=== PATIENT | female | born 1990 | race Caucasian/White ===

== ENCOUNTER → 2018-03-15 | Outpatient (CLI) | payer MEDICAID, OTHER ==
[~2018-03-15] MED LIST: AMX500CIP PO; CEPH500C PO; CODE-54 PO; PHEN200T27 PO; PREN1TAB71 PO; TRAM50TA2 PO
--- NOTE | 2018-03-15 11:08 | Diagnostic Imaging Report ---
INDICATION: Right upper quadrant pain TECHNIQUE: Multiple grayscale sonographic images were obtained of the right upper quadrant of the abdomen. CORRELATION STUDY: None FINDINGS: LIVER: There is uniform echotexture within the visualized portions of the liver. There is normal, hepatopedal direction of flow within the main portal vein. GALLBLADDER: Absent, cholecystectomy. COMMON BILE DUCT: Not visualized. PANCREAS: Largely obscured. Visualized portions are unremarkable. RIGHT KIDNEY: Measures 10.7 cm. No hydronephrosis. AORTA/IVC: Not well visualized. OTHER: None. IMPRESSION: 1. Cholecystectomy changes. Otherwise, unremarkable right upper quadrant ultrasound evaluation. Dictated by: Dictated on workstation # [id number]
== END ==
LOC: RAD 07:06
PROVIDERS: ATTEND Nurse Practitioner Family
DX: R10.11 Right upper quadrant pain (principal); Z90.49 Acquired absence of other specified parts of digestive tract
CPT/HCPCS: 76705

== ENCOUNTER 2018-10-03 21:25 | Emergency (ER) | payer BC, OTHER ==
[~2018-10-03] VITALS: Ht 160 cm; Wt 85.7 kg
--- OUTSIDE RECORDS SUMMARY | 2018-10-03 21:29 | XMS REPORT ---
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 Active 85160986 Problem History of anemia Z86.2 Active 820597883 Problem Generalized anxiety disorder F41.1 Active 54599155 Problem Moderate episode of recurrent major depressive disorder F33.1 Active 802640412 Problem Other chronic pain G89.29 Active 78934619 Problem Body mass index (BMI) of 35.0-35.9 in adult Z68.35 Active 446818332 Problem Grief F43.21 Active 391532445 Problem Dysthymia F34.1 Active 18119225 ALLERGIES No Information ENCOUNTERS Encounter Location Date Diagnosis [place] [id number] [place] [address] 38393- 7466 Oct, [facility] [address] [place] [id number] [place] [address] 77334- 4576 Sep, [facility] [id number] [place] [address] 71424- 7326 07 Sep, 2018 Moderate episode of recurrent major depressive disorder F33.1 ; Grief F43.21 and Low back pain M54.5 [facility] [address] [place] [id number] [place] [address] 46661- 3656 Aug, Generalized anxiety disorder F41.1 ; Moderate episode of recurrent major depressive disorder F33.1 and Grief F43.21 [facility] [address] [place] [address] 45592- 2299 Jul, Other obesity due to excess calories E66.09 ; Dysthymia F34.1 and Other chronic pain G89.29 [place] [address] [place] [id number] [place] [address] 86091- 6896 Jul, [place] [id number] [place] [address] 83087- 8470 Jul, Body mass index (BMI) of 35.0-35.9 in adult Z68.[address] 37404- 9860 Jun, Low back pain M54.5 ; Other chronic pain G89.29 ; Dietary counseling Z71.3 ; Other obesity due to excess calories E66.09 and Body mass index (BMI) of 35.0-35.9 in adult Z68.35 [place] [id number] [place] [address] 07136- 9491 May, [facility] [place] [id number] [place] [address] 60901 -8563 Mar, [place] [id number] [place] [address] 25489- 4422 February, Screening cholesterol level Z13.220 ; Hypercalciuria, 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 ; 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 ; Right upper quadrant pain R10.11 ; Other obesity due to excess calories E66.09 ; Body mass index (BMI) of 34.0-34.9 in adult Z68.34 and Dietary counseling Z71.3 [place] [id number] [place] [address] 84895- 8193 Jan, Well woman exam with routine gynecological exam Z01.419 ; Weight gain R63.5 ; History of anemia Z86.2 ; Acute vaginitis N76.0 and Other specified bacterial agents as the cause of diseases classified elsewhere B96.89 [facility] [place] [id number] [place] [address] 81101 -7859 Jan, Acute nasopharyngitis J00 [facility] [address] [address] 1[address] Jan, Pharyngitis, unspecified etiology J02.9 and Upper respiratory tract infection, unspecified type J06.9 [facility] [address] [place] [address] 55875 -7935 Jan, Acute thoracic back pain, unspecified back pain laterality M54.6 [facility] [address] [id number] [place] [address] 20409 -4276 Nov, Pain of sternum R07.89 [facility] [address] [place] [address] [id number] [place] [address] 99062- 7002 15 Oct, 2015 [facility] [address] [place] [address] [id number] [place] [address] 06023- 7735 14 Oct, 2015 [facility] [address] [place] [address] [id number] [place] [address] 54439- 9346 Oct, Abdominal pain R10.9 ; Hypercalciuria, 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 ; History of recurrent UTIs Z87.440 and Depression F32.9 [facility] [address] [place] [address] [id number] [place] [address] 65236- 8552 14 Jan, 2015 [facility] [address] [place] [address] 01550- 9891 Jan, [facility] [address] [place] [address] 65989- 5312 Sep, [facility] [address] [place] [address] 97083- 3539 Sep, [facility] [address] [place] [address] [id number] [place] [address] 38808- 7567 Sep, [facility] [address] [place] [address] 69399- 4205 Aug, [facility] [address] [place] [id number] [place] [address] 28686- 4867 Aug, [facility] [place] [facility] [address] [id number] [place] [address]- 7182 Jul, [facility] [place] [facility] [address] [id number] [place] [address]- 9152 Jul, [facility] [place] [facility] [address] [id number] [place] [address]- 5885 Jul, [facility] [place] [facility] [address] [id number] [place] [address]- 8464 Jul, [facility] [place] [facility] [address] [id number] [place] [address]- 3815 Jul, [facility] [place] [facility] [address] [id number] [place] [address]- 6547 Jul, [facility] [place] [facility] [address] [id number] [place] [address]- 2501 Jul, [facility] [place] [facility] [address] [id number] [place] [address]- 0445 Jul, [facility] [place] [facility] [address] [id number] [place] [address]- 3716 Jul, [facility] [place] [facility] [address] [id number] [place] [address]- 2217 28 Jun, 2013 [facility] [place] [facility] [address] [id number] [address]- 0047 27 Jun, 2013 [facility] [place] [facility] [address] [id number][place] [address]- 0230 16 Jun, 2013 [facility] [place] [facility] [address] [id number] [place] [address]- 2543 13 Jun, 2013 [facility] [place] [facility] [address] [id number] [place] [address]- 0813 12 Jun, 2013 [facility] [place] [facility] [address] [id number] [place] [address]- 7169 Mar, [facility] [place] [facility] [address] [id number] [place] [address] [address]78 Mar, [facility] [address] [facility] [id number], [place] [address]- 2270 Mar, [facility] [address] [facility] [id number], [place] [address]- 7157 Mar, [facility] [address] [facility] [id number][place] [address]- 2638 Mar, IMMUNIZATIONS No Known Immunizations SOCIAL HISTORY Never Assessed REASON FOR VISIT intake PLAN OF CARE Activity Details Follow Up 2 Weeks Reason: VITAL SIGNS MEDICATIONS Medication Instructions Dosage Frequency Start Date End Date Duration Status Ibuprofen 800 MG Orally Three times a day as needed for pain 1 tablet with food or milk as needed Jan, 30 days Active Cyclobenzaprine HCl 10 mg Orally Once a day 1 tablet as needed 24h Jun, Jun, 90 days Active RESULTS No Results PROCEDURES Procedure Date Ordered Result Body Site Psych diagnostic evaluation, established patient Sep 03, 2018 INSTRUCTIONS MEDICATIONS ADMINISTERED No Known Medications MEDICAL (GENERAL) HISTORY Type Description Date Medical History Renal stones since age of 16 Medical History History HPV 09/2008 had colp done Medical History Methamphetamine abuse in remission Medical History Lumbago Medical History Anemia Medical History Hypercalciuria Surgical History cholecystectomy 2007 Surgical History cyst removed from jaw
--- OUTSIDE RECORDS SUMMARY | 2018-10-03 21:29 | XMS REPORT ---
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 Active 17892364 Problem History of anemia Z86.2 Active 537372316 Problem Generalized anxiety disorder F41.1 Active 65215282 Problem Moderate episode of recurrent major depressive disorder F33.1 Active 910559454 Problem Other chronic pain G89.29 Active 68549780 Problem Body mass index (BMI) of 35.0-35.9 in adult Z68.35 Active 890795534 Problem Grief F43.21 Active 528624355 Problem Dysthymia F34.1 Active 80191961 ALLERGIES Substance Reaction Event Type Date Status Macrobid hives Drug Allergy Sep, Active Morphine swell Drug Allergy Sep, Active ENCOUNTERS Encounter Location Date Diagnosis [facility] [address] [place] [id number] [place] [address] 31448- 8898 Oct, [facility] [address] [address]- 1817 Sep, [facility] [address] [place] [id number] [place] [address] 69969- 1518 Sep, Moderate episode of recurrent major depressive disorder F33.1 ; Grief F43.21 and Low back pain M54.5 [facility] [address] [place] [address] [id number] [address]- 2100 Aug, Generalized anxiety disorder F41.1 ; Moderate episode of recurrent major depressive disorder F33.1 and Grief F43.21 [place] [id number] [place] [address] 49864- 1158 17 Jul, 2018 Other obesity due to excess calories E66.09 ; Dysthymia F34.1 and Other chronic pain G89.[address] 62908- 0784 Jul, [place] [address] 80708- 0600 Jul, Body mass index (BMI) of 35.0-35.9 in adult Z68.[address] 86759- 3057 06 Jun, 2018 Low back pain M54.5 ; Other chronic pain G89.29 ; Dietary counseling Z71.3 ; Other obesity due to excess calories E66.09 and Body mass index (BMI) of 35.0-35.9 in adult Z68.35 [place] [address] [place] [id number] [place] [address] 50072- 3780 May, [place] [id number] [place] [address] 73295 -2026 Mar, [place] [id number] [place] [address] 01682- 4740 February, Screening cholesterol level Z13.220 ; Hypercalciuria, 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 ; 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 ; Right upper quadrant pain R10.11 ; Other obesity due to excess calories E66.09 ; Body mass index (BMI) of 34.0-34.9 in adult Z68.34 and Dietary counseling Z71.3 [place] [id number] [place] [address] 18595- 3852 Jan, Well woman exam with routine gynecological exam Z01.419 ; Weight gain R63.5 ; History of anemia Z86.2 ; Acute vaginitis N76.0 and Other specified bacterial agents as the cause of diseases classified elsewhere B96.89 [facility] [place] [facility] [address] [address] -8692 Jan, Acute nasopharyngitis J00 [facility] [address] [place] [id number] [place] [address] 58228- 3851 Jan, Pharyngitis, unspecified etiology J02.9 and Upper respiratory tract infection, unspecified type J06.9 [facility] [address] [place] [id number] [place] [address] 11948 -8687 Jan, Acute thoracic back pain, unspecified back pain laterality M54.6 [facility] [address] [place] [id number] [place] [address] 48115 -0557 Nov, Pain of sternum R07.89 [facility] [address] [place] [id number] [place] [address] 36136- 5545 15 Oct, 2015 [place] [address] [place] [id number] [place] [address] 93939- 5558 14 Oct, 2015 [facility] [address] [place] [id number] [place] [address] 55033- 2025 13 Oct, 2015 Abdominal pain R10.9 ; Hypercalciuria, 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 ; History of recurrent UTIs Z87.440 and Depression F32.9 [place] [address] [place] [address] 45725- 5341 14 Jan, 2015 [place] [address] [place] [id number] [place] [address] 04421- 0369 Jan, [facility] [address] [place] [address] 51002- 9915 Sep, [facility] [address] [place] [id number] [place] [address] 11317- 9935 Sep, [facility] [address] [place] [id number] [place] [address] 70025- 0292 Sep, [facility] [address] [place] [id number] [place] [address] 12492- 5119 Aug, [facility] [place] [facility] [address] [id number] [place] [address]- 0004 Aug, [facility] [place] [facility] [address] [id number] [place] [address]- 2221 Jul, [facility] [place] [facility] [address] [id number] [place] [address]- 2249 Jul, [facility] [place] [facility] [address] [id number] [place] [address]- 1830 Jul, [facility] [place] [facility] [address] [id number] [place] [address]- 3595 Jul, [facility] [place] [facility] [address] [id number] [place] [address]- 2809 Jul, [facility] [place] [facility] [address] [id number] [place] [address]- 0065 Jul, [facility] [place] [facility] [address] [id number], [place] [address]- 7712 Jul, [facility] [place] [facility] [address] [id number] [place] [address]- 5497 Jul, [facility] [place] [facility] [address] [id number], [place] [address]- 7151 Jul, [facility] [place] [facility] [address] [id number], [place] [address]- 3873 28 Jun, 2013 [facility] [place] [facility] [address] [id number][place] [address]- 9009 27 Sep, 2012 [facility] [place] [facility] [address] [id number], [place] [address]- 0995 16 Sep2012 [facility] [place] [facility] [address] [id number], [place] [address]- 4867 13 Sep2012 [facility] [place] [facility] [address] [id number], [place] [address]- 0623 12 Sep, 2012 [facility] [place] [facility] [address] [id number], [place] [address]- 6139 Mar, [facility] [address] [facility] [id number] [place] [address]- 8785 Mar, [facility] [address] [facility] [id number], [place] [address]- 8891 Mar, [facility] [address] [facility] [id number] [address]- 3921 Mar, [facility] [address] [facility] [id number], [place] [address]- 0482 Mar, IMMUNIZATIONS No Known Immunizations SOCIAL HISTORY Never Assessed REASON FOR VISIT [facility] Activity Details Follow Up 4 Weeks Reason:depression VITAL SIGNS Height 61 in 2018-09-14 Weight 187.0 lbs 2018-09-14 Temperature 97.3 degrees Fahrenheit 2018-09-14 Heart Rate 76 bpm 2018-09-14 Respiratory Rate 20 2018-09-14 BMI 35.33 kg/m2 2018-09-14 Blood pressure systolic 110 mmHg 2018-09-14 Blood pressure diastolic 64 mmHg 2018-09-14 MEDICATIONS Medication Instructions Dosage Frequency Start Date End Date Duration Status Ibuprofen 800 MG Orally Three times a day as needed for pain 1 tablet with food or milk as needed Jan, 30 days Active HydrOXYzine HCl 25 MG Orally every 8 hrs 1 tablet as needed 8h Sep, 30 day(s) Active Fluoxetine HCl 20 mg Orally Once a day 1 capsule 24h Sep, 30 day(s) Active Cyclobenzaprine HCl 10 mg Orally Once a day 1 tablet as needed 24h Jun, 90 days Active RESULTS No Results PROCEDURES Procedure Date Ordered Result Body Site EKG, TRACING (IN-HOUSE) 2018-09-14 Appropriate ELECTROCARDIOGRAM, TRACING Sep 14, 2018 INSTRUCTIONS MEDICATIONS ADMINISTERED No Known Medications MEDICAL (GENERAL) HISTORY Type Description Date Medical History Renal stones since age of 16 Medical History History HPV 09/2008 had colp done Medical History Methamphetamine abuse in remission Medical History Lumbago Medical History Anemia Medical History Hypercalciuria Surgical History cholecystectomy 2007 Surgical History cyst removed from jaw
--- OUTSIDE RECORDS SUMMARY | 2018-10-03 21:30 | XMS REPORT ---
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 Active 32142418 Problem Other obesity due to excess calories E66.09 Active 781855653 Problem Other chronic pain G89.29 Active 98915633 Problem Dietary counseling Z71.3 Active 194464969 Problem History of anemia Z86.2 Active 917310040 Problem Body mass index (BMI) of 35.0-35.9 in adult Z68.35 Active 692343499 Problem 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 269397554 ALLERGIES No Information ENCOUNTERS Encounter Location Date Diagnosis [facility] [address] [address]249- 1141 Jul, [place] [address] 98747- 8550 Jul, [facility] [address] [place] [id number] [place] [address] 61907- 0722 Jul, Body mass index (BMI) of 35.0-35.9 in adult Z68.35 [facility] [address] [place] [id number] [place] [address] 21643- 6702 Jun, Low back pain M54.5 ; Other chronic pain G89.29 ; Dietary counseling Z71.3 ; Other obesity due to excess calories E66.09 and Body mass index (BMI) of 35.0-35.9 in adult Z68.35 [facility] [address] [place] [id number] [place] [address] 67668- 8783 May, [facility] [address] [place] [id number] [place] [address] 22558 -8763 Mar, [place] [address] 79461- 9343 February, Screening cholesterol level Z13.220 ; Hypercalciuria, 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 ; 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 ; Right upper quadrant pain R10.11 ; Other obesity due to excess calories E66.09 ; Body mass index (BMI) of 34.0-34.9 in adult Z68.34 and Dietary counseling Z71.3 [place] [address] 63838- 7722 27 Jan, 2018 Well woman exam with routine gynecological exam Z01.419 ; Weight gain R63.5 ; History of anemia Z86.2 ; Acute vaginitis N76.0 and Other specified bacterial agents as the cause of diseases classified elsewhere B96.89 [facility] [place] [address] [place] [id number] [place] [address] 34798 -6676 Jan, Acute nasopharyngitis J00 [place] [address] [place] [id number] [place] [address] 76151- 2292 Jan, Pharyngitis, unspecified etiology J02.9 and Upper respiratory tract infection, unspecified type J06.9 [facility] [place] [id number] [place] [address] 63376 -9188 Jan, Acute thoracic back pain, unspecified back pain laterality M54.6 [facility] [place] [address] [place] [id number] [place] [address] 56785 -8295 Nov, Pain of sternum R07.89 [place] [address] 71277- 2714 Oct, [place] [address] 63901- 9396 14 Oct, 2015 [place] [address] 60905- 3556 13 Oct, 2015 Abdominal pain R10.9 ; Hypercalciuria, 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 ; History of recurrent UTIs Z87.440 and Depression F32.9 [facility] [address] [place] [id number] [place] [address] 72268- 3380 14 Jan, 2015 [facility] [address] [place] [id number] [place] [address] 42378- 0751 Jan, [facility] [address] [place] [id number] [place] [address] 27481- 6996 Sep, [facility] [id number] [place] [address] 42260- 0199 Sep, [facility] [address] [place] [id number] [place] [address] 14442- 1159 Sep, [facility] [address] [place] [id number] [place] [address] 63360- 1497 Aug, [facility] [address] [place] [id number] [place] [address] 92455- 6478 Aug, [facility] [id number] [place] [address] 24622- 4152 Jul, [facility] [address] [place] [id number] [place] [address] 18074- 3282 Jul, [facility] [address], [place] [address]- 7093 Jul, [facility] [id number] [place] [address] 27165- 6091 Jul, [facility] [id number] [place] [address] 31218- 9033 Jul, [facility] [address] [id number] [place] [address] 90450- 0230 Jul, [facility] [address], [place] [address]- 8169 Jul, [facility] [address] [place] [id number] [place] [address] 03687- 9930 Jul, [facility] [address] [facility] [id number], [place] [address]- 6604 02 Jul, 2013 [facility] [address] [facility] [id number], [place] [address]- 1849 28 Jun, 2013 [facility] [address] [facility] [id number], [place] [address]- 7047 27 Jun, 2013 [facility] [address] [facility] [id number], [place] [address]- 4046 16 Jun, 2013 [facility] [address] [facility] [id number], [place] [address]- 9972 13 Jun, 2013 [facility] [address] [place] [id number] [address]- 9322 12 Jun, 2013 [facility] [address], [place] [address]- 9878 Mar, [facility] [address], [place] [address]- 5044 Mar, [facility] [address], [place] [address]- 2598 Mar, [facility] [id number], [place] [address] Mar, [facility] [id number], [place] [address] Mar, IMMUNIZATIONS No Known Immunizations SOCIAL HISTORY Never Assessed REASON FOR VISIT diethylpropion 07/12 PLAN OF CARE VITAL SIGNS MEDICATIONS Unknown Medications RESULTS No Results PROCEDURES No Known procedures INSTRUCTIONS MEDICATIONS ADMINISTERED No Known Medications MEDICAL (GENERAL) HISTORY Type Description Date Medical History Renal stones since age of 16 Medical History History HPV 09/2008 had colp done Medical History Methamphetamine abuse in remission Medical History Lumbago Medical History Anemia Medical History Hypercalciuria Surgical History cholecystectomy 2007 Surgical History cyst removed from jaw
--- OUTSIDE RECORDS SUMMARY | 2018-10-03 21:30 | XMS REPORT ---
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 459418807 ALLERGIES No Information ENCOUNTERS Encounter Location Date Diagnosis [facility] [id number] [place] [address] 14566- 3845 Jun, [facility] [address] [address]221- 3609 May, [facility] [address] [place] [address] 92173 -0513 Mar, [facility] [id number] [place] [address] 54534- 3677 February, Screening cholesterol level Z13.220 ; Hypercalciuria, 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 ; 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 ; Right upper quadrant pain R10.11 ; Other obesity due to excess calories E66.09 ; Body mass index (BMI) of 34.0-34.9 in adult Z68.34 and Dietary counseling Z71.3 [facility] [id number] [place] [address] 12066- 3784 27 Jan, 2018 Well woman exam with routine gynecological exam Z01.419 ; Weight gain R63.5 ; History of anemia Z86.2 ; Acute vaginitis N76.0 and Other specified bacterial agents as the cause of diseases classified elsewhere B96.89 [facility] [place] [id number] [place] [address] 61040 -7840 Jan, Acute nasopharyngitis [address] [place] [id number] [place] [address] 96653- 4626 Jan, Pharyngitis, unspecified etiology J02.9 and Upper respiratory tract infection, unspecified type J06.9 [facility] [place] [id number] [place] [address] 42552 -2958 Jan, Acute thoracic back pain, unspecified back pain laterality M54.6 [facility] [place] [id number] [place] [address] 86186 -7293 Nov, Pain of sternum R07.89 [place] [id number] [place] [address] 59021- 6079 15 Oct, 2015 [place] [id number] [place] [address] 71634- 0878 Oct, [place] [id number] [place] [address] 29705- 8408 Oct, Abdominal pain R10.9 ; Hypercalciuria, 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 ; History of recurrent UTIs Z87.440 and Depression F32.9 [place] [id number] [place] [address] 50341- 4224 14 Jan, 2015 [place] [id number] [place] [address] 86597- 6673 Jan, [place] [id number] [place] [address] 39699- 7053 Sep, [place] [id number] [place] [address] 50860- 1771 Sep, [place] [id number] [place] [address] 32565- 9662 Sep, [facility] [place] [facility] [address] [id number] [place] [address]- 5371 Aug, [facility] [place] [facility] [address] [id number] [place] [address]- 6361 Aug, [facility] [place] [facility] [address] [id number] [place] [address]- 5270 Jul, [facility] [place] [facility] [address] [id number] [place] [address]- 5665 Jul, [facility] [place] [facility] [address] [id number] [place] [address]- 3150 Jul, [facility] [place] [facility] [address] [id number] [place] [address]- 8899 Jul, [facility] [place] [facility] [address] [id number] [place] [address]- 5386 Jul, [facility] [place] [facility] [address] [id number] [place] [address]- 7866 Jul, [facility] [place] [facility] [address] [id number] [place] [address]- 8654 Jul, [facility] [place] [facility] [address] [id number], [place] [address]- 8291 Jul, [facility] [place] [facility] [address] [id number], [place] [address]- 7070 Jul, [facility] [place] [facility] [address] [id number], [place] [address]- 1367 28 Jun, 2013 [facility] [place] [facility] [address] [id number] [place] [address]- 4878 27 Sep2012 [facility] [place] [facility] [address] [id number] [place] [address]- 5549 16 Sep2012 [facility] [place] [facility] [address] [id number] [place] [address] [address] 13 Jun, 2013 [facility] [place] [facility] [address] [id number], [place] [address]- 4506 Jun, [facility] [address] [facility] [id number], [place] [address]- 8116 Mar, [facility] [address] [id number] [address] 0794 Mar, [facility] [address] [facility] [id number], [place] [address]- 5271 Mar, [facility] [address] [id number] [address] 0906 14 Mar, 2012 [facility] [address] [facility] [id number], [place] [address]- 3061 Mar, IMMUNIZATIONS No Known Immunizations SOCIAL HISTORY Never Assessed REASON FOR VISIT triage JStrasserRN PLAN OF CARE VITAL SIGNS Height 61 in 2018-03-20 Weight 184.4 lbs 2018-03-20 Temperature 98.0 degrees Fahrenheit 2018-03-20 Heart Rate 60 bpm 2018-03-20 Respiratory Rate 16 2018-03-20 BMI 34.84 kg/m2 2018-03-20 Blood pressure systolic 100 mmHg 2018-03-20 Blood pressure diastolic 60 mmHg 2018-03-20 MEDICATIONS Unknown Medications RESULTS No Results PROCEDURES No Known procedures INSTRUCTIONS MEDICATIONS ADMINISTERED No Known Medications MEDICAL (GENERAL) HISTORY Type Description Date Medical History Renal stones since age of 16 Medical History History HPV 09/2008 had colp done Surgical History cholecystectomy 2007 Surgical History cyst removed from jaw
--- OUTSIDE RECORDS SUMMARY | 2018-10-03 21:30 | XMS REPORT ---
Author Author DANAY WILHEML Organization [facility] Address [address] [place] [address] Care Team Providers Care Extruding Press Operator Name Role Phone WILHELMDANAY Shine Unavailable PROBLEMS Type Condition ICD9-CM Code SCS37-MU Code Onset Dates Condition Status SNOMED Code Problem Hypercalciuria, 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 Active 57073313 Problem Other obesity due to excess calories E66.09 Active 826857049 Problem Other chronic pain G89.29 Active 88868777 Problem Dietary counseling Z71.3 Active 235576216 Problem History of anemia Z86.2 Active 284794605 Problem Body mass index (BMI) of 35.0-35.9 in adult Z68.35 Active 725051551 Problem 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 839903962 ALLERGIES No Information ENCOUNTERS Encounter Location Date Diagnosis [facility] [address] [place] [address] 07502- 0552 06 Jun, 2018 Low back pain M54.5 ; Other chronic pain G89.29 ; Dietary counseling Z71.3 ; Other obesity due to excess calories E66.09 and Body mass index (BMI) of 35.0-35.9 in adult Z68.35 [facility] [id number] [place] [address] 48959- 1937 May, [facility] [id number] [place] [address] 50385 -7515 Mar, [facility] [address] 21638- 5882 February, Screening cholesterol level Z13.220 ; Hypercalciuria, 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 ; 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 ; Right upper quadrant pain R10.11 ; Other obesity due to excess calories E66.09 ; Body mass index (BMI) of 34.0-34.9 in adult Z68.34 and Dietary counseling Z71.3 [place] [address] [place] [address] 42841- 5685 Jan, Well woman exam with routine gynecological exam Z01.419 ; Weight gain R63.5 ; History of anemia Z86.2 ; Acute vaginitis N76.0 and Other specified bacterial agents as the cause of diseases classified elsewhere B96.89 [facility] [place] [id number] [place] [address] 29426 -7574 Jan, Acute nasopharyngitis J00 [place] [id number] [place] [address] 04022- 0134 Jan, Pharyngitis, unspecified etiology J02.9 and Upper respiratory tract infection, unspecified type J06.9 [facility] [place] [id number] [place] [address] 60924 -6025 Jan, Acute thoracic back pain, unspecified back pain laterality M54.6 [facility] [place] [id number] [place] [address] 47562 -9844 Nov, Pain of sternum R07.89 [place] [id number] [place] [address] 45519- 3611 Oct, [place] [id number] [place] [address] 49289- 9814 14 Oct, 2015 [place] [id number] [place] [address] 75629- 9492 Oct, Abdominal pain R10.9 ; Hypercalciuria, 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 ; History of recurrent UTIs Z87.440 and Depression F32.9 [place] [id number] [place] [address] 36320- 6848 Jan, [place] [id number] [place] [address] 00771- 1841 Jan, [place] [id number] [place] [address] 74600- 6904 Sep, [facility] [place] [facility] [address] [id number] [place] [address]- 3321 Sep, [facility] [place] [facility] [address] [id number] [place] [address]- 2877 Sep, [facility] [place] [facility] [address] [id number] [place] [address]- 0208 Aug, [facility] [place] [facility] [address] [id number] [place] [address]- 9698 Aug, [facility] [place] [facility] [address] [id number] [place] [address]- 1698 Jul, [facility] [place] [facility] [address] [id number] [place] [address]- 1855 Jul, [facility] [place] [facility] [address] [id number] [place] [address]- 4715 Jul, [facility] [place] [facility] [address] [id number] [place] [address]- 5865 Jul, [facility] [place] [facility] [address] [id number] [place] [address]- 3328 Jul, [facility] [place] [facility] [address] [id number] [place] [address]- 3875 Jul, [facility] [place] [facility] [address] [id number] [place] [address]- 4101 Jul, [facility] [place] [facility] [address] [id number] [place] [address]- 6083 Jul, [facility] [place] [facility] [address] [id number] [place] [address]- 6257 Jul, [facility] [place] [facility] [address] [id number] [place] [address]- 3326 28 Jun, 2013 [facility] [place] [facility] [address] [id number] [place] [address]- 1705 27 Jun, 2013 [facility] [place] [facility] [address] [id number] [address]- 2981 16 Jun, 2013 [facility] [address] [address]- 8511 13 Jun, 2013 [facility] [address] [id number] [address]- 2483 12 Jun, 2013 [facility] [address] [address]- 3180 21 Mar, 2012 [facility] [address] [address]- 4751 Mar, [facility] [address] [address]- 3299 Mar, [facility] [address] [address]- 1462 14 Mar, 2012 [facility] [address] [id number] [address]- 2474 Mar, IMMUNIZATIONS No Known Immunizations SOCIAL HISTORY Never Assessed REASON FOR VISIT Requests return call PLAN OF CARE VITAL SIGNS MEDICATIONS No Known Medications RESULTS No Results PROCEDURES No Known [...]
--- OUTSIDE RECORDS SUMMARY | 2018-10-03 21:30 | XMS REPORT ---
Author Author DANAY WILHELM Organization [facility] Address [address] [place] [address] Care Team Providers Care Executive Vice President And Chief Operating Officer Name Role Phone WILHELMDANAY Shine Unavailable PROBLEMS Type Condition ICD9-CM Code GHX87-OD Code Onset Dates Condition Status SNOMED Code Problem Other obesity due to excess calories E66.09 Active 617105401 Problem Dietary counseling Z71.3 Active 179139448 Problem History of anemia Z86.2 Active 840190415 Problem Hypercalciuria, 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 Active 61104414 Problem Body mass index (BMI) of 34.0-34.9 in adult Z68.34 Active 637605320 Problem 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ALK [facility] [id number] [place] [address] 07251 -6444 Jan, Acute nasopharyngitis [address] [place] [id number] [place] [address] 81674- 7875 Jan, Pharyngitis, unspecified etiology J02.9 and Upper respiratory tract infection, unspecified type J06.9 [facility] [place] [id number] [place] [address] 03700 -6644 Jan, Acute thoracic back pain, unspecified back pain laterality M54.6 [facility] [place] [id number] [place] [address] 00608 -5377 Nov, Pain of sternum R07.89 [place] [id number] [place] [address] 66170- 2730 Oct, [place] [id number] [place] [address] 47155- 5769 Oct, [place] [id number] [place] [address] 61628- 4879 Oct, Abdominal pain R10.9 ; Hypercalciuria, 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 ; History of recurrent UTIs Z87.440 and Depression F32.9 [place] [address] [place] [address] 15509- 7468 Jan, [place] [id number] [place] [address] 85993- 3129 Jan, [place] [id number] [place] [address] 88376- 9980 Sep, [place] [id number] [place] [address] 86774- 4075 Sep, [facility] [place] [facility] [address] [id number] [place] [address]- 4873 Sep, [facility] [place] [facility] [address] [id number] [place] [address]- 3365 Aug, [facility] [place] [facility] [address] [id number] [place] [address]- 6017 Aug, [facility] [place] [facility] [address] [id number] [place] [address]- 6286 Jul, [facility] [place] [facility] [address] [id number] [place] [address]- 9859 Jul, [facility] [place] [facility] [address] [id number] [place] [address]- 1142 Jul, [facility] [place] [facility] [address] [id number] [place] [address]- 8009 Jul, [facility] [place] [facility] [address] [id number] [place] [address]- 3492 Jul, [facility] [place] [facility] [address] [id number] [place] [address]- 2541 Jul, [facility] [place] [facility] [address] [id number] [place] [address]- 7433 Jul, [facility] [place] [facility] [address] [id number] [place] [address]- 7449 Jul, [facility] [place] [facility] [address] [id number] [place] [address]- 6849 02 Jul, 2013 [facility] [place] [facility] [address] [id number] [place] [address]- 3857 28 Jun, 2013 [facility] [place] [facility] [address] [id number] [place] [address]- 8635 27 Jun, 2013 [facility] [place] [facility] [address] [id number] [place] [address]- 5909 16 Jun, 2013 [facility] [place] [facility] [address] [id number] [address]- 2286 13 Jun, 2013 [facility] [address] [facility] [id number] [place] [address]- 7872 12 Jun, 2013 [facility] [address] [facility] [id number] [address]- 7315 Mar, [facility] [address] [facility] [id number] [place] [address]- 9833 Mar, [facility] [address] [facility] [id number] [place] [address]- 4646 Mar, [facility] [address] [facility] [id number] [address]- 2747 Mar, [facility] [address] [facility] [id number] [place] [address]- 3126 Mar, IMMUNIZATIONS No Known Immunizations SOCIAL HISTORY Never Assessed REASON FOR VISIT Establish Care-PADMAJA Garcia PLAN OF CARE Activity Details Follow Up 3 Months, prn Reason:CHM/ Future/Pending Procedure ROUTINE VENIPUNCTURE VITAL SIGNS Height 61 in 2018-03-08 Weight 182.6 lbs 2018-03-08 Temperature 98.3 degrees Fahrenheit 2018-03-08 Heart Rate 80 bpm 2018-03-08 Respiratory Rate 20 2018-03-08 BMI 34.50 kg/m2 2018-03-08 Blood pressure systolic 100 mmHg 2018-03-08 Blood pressure diastolic 64 mmHg 2018-03-08 MEDICATIONS Medication Instructions Dosage Frequency Start Date End Date Duration Status Ibuprofen 800 MG Orally Three times a day as needed for pain 1 tablet with food or milk as needed Jan, Active RESULTS No Results PROCEDURES Procedure Date Ordered Result Body Site LAB NOT BILLED BY [facility] March 08, 2018 No Charge March 08, 2018 VENIPUNCT, ROUTINE* March 08, 2018 INSTRUCTIONS MEDICATIONS ADMINISTERED No Known Medications MEDICAL (GENERAL) HISTORY Type Description Date Medical History Renal stones since age of 16 Medical History History HPV 09/2008 had colp done Surgical History cholecystectomy 2007 Surgical History cyst removed from jaw
--- OUTSIDE RECORDS SUMMARY | 2018-10-03 21:30 | XMS REPORT ---
Author Author DANAY Woody Organization [facility] Address [address] [place] [address] Care Team Providers Care Senior Boiler Operator Name Role Phone DANAY Woody Unavailable PROBLEMS Type Condition ICD9-CM Code EKK89-JG Code Onset Dates Condition Status SNOMED Code Problem Hypercalciuria, 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 Active 52498824 Problem Other obesity due to excess calories E66.09 Active 718269339 Problem Other chronic pain G89.29 Active 96203032 Problem Dietary counseling Z71.3 Active 427658522 Problem History of anemia Z86.2 Active 099060855 Problem Body mass index (BMI) of 35.0-35.9 in adult Z68.35 Active 405875964 Problem 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 944945340 ALLERGIES No Information ENCOUNTERS Encounter Location Date Diagnosis [facility] [address] [address] Jul, [facility] [address] [address]- [address] Jul, [facility] [address] [place] [id number] [place] [address] 40519- 5647 Jul, Body mass index (BMI) of 35.0-35.9 in adult Z68.35 [facility] [id number] [place] [address] 07460- 1172 Jun, Low back pain M54.5 ; Other chronic pain G89.29 ; Dietary counseling Z71.3 ; Other obesity due to excess calories E66.09 and Body mass index (BMI) of 35.0-35.9 in adult Z68.35 [facility] [id number] [place] [address] 59670- 6898 May, [facility] [id number] [place] [address] 81030 -8095 Mar, [place] [address] [address] February, Screening cholesterol level Z13.220 ; Hypercalciuria, 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 ; 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 ; Right upper quadrant pain R10.11 ; Other obesity due to excess calories E66.09 ; Body mass index (BMI) of 34.0-34.9 in adult Z68.34 and Dietary counseling Z71.3 [place] [address] [address] 27 Jan, 2018 Well woman exam with routine gynecological exam Z01.419 ; Weight gain R63.5 ; History of anemia Z86.2 ; Acute vaginitis N76.0 and Other specified bacterial agents as the cause of diseases classified elsewhere B96.89 [facility] [place] [id number] [place] [address] 97095 -2968 Jan, Acute nasopharyngitis J00 [place] [id number] [place] [address] 69801- 5555 Jan, Pharyngitis, unspecified etiology J02.9 and Upper respiratory tract infection, unspecified type J06.9 [facility] [place] [id number] [place] [address] 26193 -0482 Jan, Acute thoracic back pain, unspecified back pain laterality M54.6 [facility] [place] [id number] [place] [address] 95796 -9647 Nov, Pain of sternum R07.89 [place] [address] 36263- 9370 Oct, [place] [address] 87004- 1087 14 Oct, 2015 [place] [address] 50770- 8085 13 Oct, 2015 Abdominal pain R10.9 ; Hypercalciuria, 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 ; History of recurrent UTIs Z87.440 and Depression F32.9 [facility] [id number] [place] [address] 01643- 8413 14 Jan, 2015 [facility] [id number] [place] [address] 05041- 6001 Jan, [facility] [id number] [place] [address] 88561- 6480 Sep, [facility] [id number] [place] [address] 40462- 2509 Sep, [facility] [id number] [place] [address] 79056- 3811 Sep, [facility] [id number] [place] [address] 09096- 8135 Aug, [facility] [id number] [place] [address] 37475- 9844 Aug, [facility] [id number] [place] [address] 52330- 7049 Jul, [facility] [id number] [place] [address] 46907- 0242 Jul, [facility] [id number], [place] [address] 7646 Jul, [facility] [id number] [place] [address] 15056- 2069 Jul, [facility] [id number] [place] [address] 05322- 9798 Jul, [facility] [id number] [place] [address] 44895- 6901 Jul, [facility] [id number], [place] [address] 0465 Jul, [facility] [id number] [place] [address] 74879- 0232 Jul, [facility] [address], [place] [address]- 1485 02 Jul, 2013 [facility] [id number], [place] [address] 28 Jun, 2013 [facility] [address], [place] [address] 1407 27 Jun, 2013 [facility] [address], [place] [address]- 4999 16 Jun, 2013 [facility] [address], [place] [address]- 0448 13 Jun, 2013 [facility] [address], [place] [address]- 6060 12 Jun, 2013 [facility] [address], [place] [address]- 7834 Mar, [facility] [address], [place] [address]- 1343 Mar, [facility] [address], [place] [address] 8210 Mar, [facility] [address], [place] [address]- 0417 Mar, [facility] [address] [place] [id number] [address] 2081 Mar, IMMUNIZATIONS No Known Immunizations SOCIAL HISTORY Never Assessed REASON FOR VISIT Bp check/weight check PLAN OF CARE VITAL SIGNS Height 61 in 2018-07-09 Weight 184.6 lbs 2018-07-09 Heart Rate 74 bpm 2018-07-09 Respiratory Rate 18 2018-07-09 BMI 34.88 kg/m2 2018-07-09 Blood pressure systolic 122 mmHg 2018-07-09 Blood pressure diastolic 80 mmHg 2018-07-09 MEDICATIONS Unknown Medications RESULTS No Results PROCEDURES [...]
--- OUTSIDE RECORDS SUMMARY | 2018-10-03 21:30 | XMS REPORT ---
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 29538978 Problem Other obesity due to excess calories E66.09 Active 541833469 Problem Other chronic pain G89.29 Active 59798250 Problem Dietary counseling Z71.3 Active 392764444 Problem History of anemia Z86.2 Active 654865077 Problem Body mass index (BMI) of 35.0-35.9 in adult Z68.35 Active 415214549 Problem 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 483403555 ALLERGIES Substance Reaction Event Type Date Status Macrobid hives Drug Allergy Jun, Active Morphine swell Drug Allergy Jun, Active ENCOUNTERS Encounter Location Date Diagnosis [facility] [address] [place] [address] 29974- 2633 Jun, Low back pain M54.5 ; Other chronic pain G89.29 ; Dietary counseling Z71.3 ; Other obesity due to excess calories E66.09 and Body mass index (BMI) of 35.0-35.9 in adult Z68.35 [facility] [address] [place] [id number] [address] 79[address] May, [facility] [address] [place] [id number] [place] [address] 05135 -4598 Mar, [facility] [address] [place] [address] 59768- 6264 February, Screening cholesterol level Z13.220 ; Hypercalciuria, 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 ; 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 ; Right upper quadrant pain R10.11 ; Other obesity due to excess calories E66.09 ; Body mass index (BMI) of 34.0-34.9 in adult Z68.34 and Dietary counseling Z71.3 [place] [address] [place] [address] [id number] [place] [address] 25208- 1061 27 Jan, 2018 Well woman exam with routine gynecological exam Z01.419 ; Weight gain R63.5 ; History of anemia Z86.2 ; Acute vaginitis N76.0 and Other specified bacterial agents as the cause of diseases classified elsewhere B96.89 [facility] [place] [id number] [place] [address] 49124 -2600 Jan, Acute nasopharyngitis J00 [place] [address] [place] [id number] [place] [address] 30928- 0462 Jan, Pharyngitis, unspecified etiology J02.9 and Upper respiratory tract infection, unspecified type J06.9 [facility] [place] [address] [id number] [place] [address] 75483 -0318 Jan, Acute thoracic back pain, unspecified back pain laterality M54.6 [facility] [place] [address] [place] [address] [id number] [place] [address] 62557 -0310 Nov, Pain of sternum R07.89 [place] [address] [place] [address] [id number] [place] [address] 45835- 2709 15 Oct, 2015 [place] [address] [place] [id number] [place] [address] 10161- 2710 14 Oct, 2015 [place] [address] [place] [id number] [place] [address] 38521- 0079 13 Oct, 2015 Abdominal pain R10.9 ; Hypercalciuria, 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 ; History of recurrent UTIs Z87.440 and Depression F32.9 [place] [address] [place] [id number] [place] [address] 84611- 1431 14 Jan, 2015 [place] [address] [place] [id number] [place] [address] 92825- 2760 13 Jan, 2015 [facility] [address] [id number] [place] [address]- 2308 Sep, [facility] [place] [facility] [address] [id number] [place] [address]- 4845 Sep, [facility] [place] [facility] [address] [id number] [place] [address] Sep, [facility] [place] [facility] [address] [id number] [place] [address]- 7286 Aug, [facility] [place] [facility] [address] [id number] [place] [address]- 5638 Aug, [facility] [place] [facility] [address] [id number] [place] [address]- 2123 Jul, [facility] [place] [facility] [address] [id number] [place] [address]- 4922 Jul, [facility] [place] [facility] [address] [id number] [place] [address]- 1151 Jul, [facility] [place] [facility] [address] [id number] [place] [address]- 9799 Jul, [facility] [place] [facility] [address] [id number] [address]- 4996 Jul, [facility] [place] [facility] [address] [id number][place] [address]- 5881 Jul, [facility] [place] [facility] [address] [id number][place] [address]- 8432 Jul, [facility] [place] [facility] [address] [id number][place] [address]- 7308 Jul, [facility] [place] [facility] [address] [id number] 6784 Jul, [facility] [place] [facility] [address] [id number] 7193 Jun, [facility] [place] [facility] [address] [id number] [address]- 0602 27 Jun, 2013 [facility] [id number] 9666 16 Jun, 2013 [facility] [id number] 3287 13 Jun, 2013 [facility] [id number] [address]- 7297 12 Jun, 2013 [facility] [address] [address]- 8423 Mar, [facility] [address]- 0[address] Mar, [facility] [address] 3866 Mar, [facility] [address], [place] [address]- 6725 Mar, [facility] [id number] [address]- 6082 Mar, IMMUNIZATIONS No Known Immunizations SOCIAL HISTORY Never Assessed REASON FOR VISIT Pain management (chronic). PADMAJA Medina, Would like Ibuprofen refilled. PADMAJA Medina PLAN OF CARE Activity Details Follow Up 4 Weeks, 3 Months, prn Reason:Wt/BP check, Chm VITAL SIGNS Height 61 in 2018-06-14 Weight 187.4 lbs 2018-06-14 Temperature 97.9 degrees Fahrenheit 2018-06-14 Heart Rate 69 bpm 2018-06-14 Respiratory Rate 18 2018-06-14 BMI 35.41 kg/m2 2018-06-14 Blood pressure systolic 108 mmHg 2018-06-14 Blood pressure diastolic 74 mmHg 2018-06-14 MEDICATIONS Medication Instructions Dosage Frequency Start Date End Date Duration Status Diethylpropion HCl ER 75 MG Orally Once a day 1 tablet 24h Jun, Jul, 28 days Active Ibuprofen 800 MG Orally Three times a day as needed for pain 1 tablet with food or milk as needed Jan, 30 days Active Cyclobenzaprine HCl 10 mg Orally Once a day 1 tablet as needed 24h Jun, Jun, 90 days Active RESULTS No Results PROCEDURES No Known procedures [...]
--- OUTSIDE RECORDS SUMMARY | 2018-10-03 21:30 | XMS REPORT ---
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 005246467 ALLERGIES Substance Reaction Event Type Date Status Macrobid Unknown Drug Allergy Jan, Active Morphine Unknown Drug Allergy Jan, Active ENCOUNTERS Encounter Location Date Diagnosis [facility] [address] [place] [address] 92357 -8349 Mar, [facility] [address] [place] [id number] [place] [address] 69136- 4364 February, Screening cholesterol level Z13.220 ; Hypercalciuria, 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 ; 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 ; Right upper quadrant pain R10.11 ; Other obesity due to excess calories E66.09 ; Body mass index (BMI) of 34.0-34.9 in adult Z68.34 and Dietary counseling Z71.3 [facility] [address] [place] [id number] [place] [address] 85573- 1040 Jan, Well woman exam with routine gynecological exam Z01.419 ; Weight gain R63.5 ; History of anemia Z86.2 ; Acute vaginitis N76.0 and Other specified bacterial agents as the cause of diseases classified elsewhere B96.89 [facility] [address], [place] [address] Jan, Acute nasopharyngitis J00 [facility] [id number] [place] [address] 01783- 5507 Jan, Pharyngitis, unspecified etiology J02.9 and Upper respiratory tract infection, unspecified type J06.9 [facility] [id number] [place] [address] 42771 -6743 Jan, Acute thoracic back pain, unspecified back pain laterality M54.6 [facility] [id number] [place] [address] 34670 -2194 Nov, Pain of sternum R07.89 [facility] [id number] [place] [address] 24721- 2592 15 Oct, 2015 [facility] [id number] [place] [address] 59348- 7717 14 Oct, 2015 [facility] [id number] [place] [address] 65664- 8206 Oct, Abdominal pain R10.9 ; Hypercalciuria, 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 ; History of recurrent UTIs Z87.440 and Depression F32.9 [facility] [address], [place] [address]- 4465 14 Jan, 2015 [facility] [address] [place] [address] 86711- 3678 Jan, [facility] [address] [place] [address] 49155- 9175 Sep, [facility] [address] [place] [id number] [place] [address] 87026- 3268 Sep, [facility] [address] 7486 Sep, [facility] [address] [place] [address] 47604- 8601 Aug, [facility] [place] [facility] [address] [id number] [place] [address]- 5184 Aug, [facility] [place] [facility] [address] [id number] [place] [address]- 1849 Jul, [facility] [place] [facility] [address] [id number] [place] [address]- 1864 Jul, [facility] [place] [facility] [address] [id number] [place] [address]- 8883 Jul, [facility] [place] [facility] [address] [id number] [place] [address]- 6372 Jul, [facility] [place] [facility] [address] [id number] [place] [address]- 6352 Jul, [facility] [place] [facility] [address] [id number] [place] [address]- 5934 Jul, [facility] [place] [facility] [address] [id number], [place] [address]- 7607 Jul, [facility] [place] [facility] [address] [id number] [place] [address]- 8204 Jul, [facility] [place] [facility] [address] [id number], [place] [address]- 2680 Jul, [facility] [place] [facility] [address] [id number], [place] [address]- 4095 28 Jun, 2013 [facility] [place] [facility] [address] [id number], [place] [address]- 6438 27 Sep, 2012 [facility] [place] [facility] [address] [id number] [place] [address]- 0125 16 Sep2012 [facility] [place] [facility] [address] [id number], [place] [address]- 0147 13 Sep2012 [facility] [place] [facility] [address] [id number] [place] [address]- 9505 12 Sep2012 [facility] [place] [facility] [address] [facility] [id number], [place] [address]- 7917 21 Mar, 2012 [facility] [address] [facility] [address] [facility] [id number], [place] [address]- 8909 Mar, [facility] [address] [facility] [address] [facility] [id number], [place] [address]- 0164 20 Mar, 2012 [facility] [address] [facility] [address] [facility] [id number], [place] [address]- 9825 14 Mar, 2012 [facility] [address] [facility] [address] [facility] [id number], [place] [address]- 0508 12 Mar, 2012 IMMUNIZATIONS No Known Immunizations SOCIAL HISTORY Never Assessed REASON FOR VISIT Well Woman Exam----HUennettRWilla PLAN OF CARE Activity Details Follow Up 1 year Reason:well woman Pending Test PAP REFLEX TO HPV IF ASCUS VITAL SIGNS Height 61 in 2018-02-02 Weight 180 lbs 2018-02-02 Temperature 98.4 degrees Fahrenheit 2018-02-02 Heart Rate 70 bpm 2018-02-02 Respiratory Rate 20 2018-02-02 BMI 34.01 kg/m2 2018-02-02 Blood pressure systolic 124 mmHg 2018-02-02 Blood pressure diastolic 80 mmHg 2018-02-02 MEDICATIONS Medication Instructions Dosage Frequency Start Date End Date Duration Status Prozac 20 MG Orally Once a day 1 capsule in the morning 24h Oct, 30 day(s) Not-Taking Tessalon Perles 100 MG Orally Three times a day 1 capsule as needed 8h Jan, Jan, 5 days Active Loratadine 10 MG Orally Once a day 1 tablet 24h Jan, February, 30 day(s) Active Metronidazole 500 mg Orally every 12 hrs 1 tablet 12h Jan, February, 07 days Active Ibuprofen 800 MG Orally Three times a day as needed for pain 1 tablet with food or milk as needed Jan, Active RESULTS No Results PROCEDURES Procedure Date Ordered Result Body Site LAB NOT BILLED BY [facility] February 02, 2018 SPECIMEN HANDLING February 02, 2018 No Charge February 02, 2018 Bacterial Vaginosis In House February 02, 2018 VENIPUNCT, ROUTINE* February 02, 2018 INSTRUCTIONS MEDICATIONS ADMINISTERED No Known Medications MEDICAL (GENERAL) HISTORY Type Description Date Medical History Renal stones since age of 16 Medical History History HPV 09/2008 had colp done Surgical History cholecystectomy 2008 Surgical History cyst removed from jaw
--- OUTSIDE RECORDS SUMMARY | 2018-10-03 21:31 | XMS REPORT ---
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 94802336 Problem Body mass index (BMI) of 34.0-34.9 in adult Z68.34 Active 397519603 Problem 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 230751224 ALLERGIES Substance Reaction Event Type Date Status Macrobid Unknown Drug Allergy Jan, Active Morphine Unknown Drug Allergy Jan, Active ENCOUNTERS Encounter Location Date Diagnosis [facility] [id number] [place] [address] Mar, [facility] [id number] [place] [address] February, Screening cholesterol level Z13.220 ; Hypercalciuria, 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 ; 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 ; Right upper quadrant pain R10.11 ; Other obesity due to excess calories E66.09 ; Body mass index (BMI) of 34.0-34.9 in adult Z68.34 and Dietary counseling Z71.3 [facility] [id number] [place] [address]68- [address]20 Jan, 2018 Well woman exam with routine gynecological exam Z01.419 ; Weight gain R63.5 ; History of anemia Z86.2 ; Acute vaginitis N76.0 and Other specified bacterial agents as the cause of diseases classified elsewhere B96.89 [facility] [address], [place] [address] Jan, Acute nasopharyngitis J00 [facility] [id number] [place] [address]10[address]386 Jan, Pharyngitis, unspecified etiology J02.9 and Upper respiratory tract infection, unspecified type J06.9 [facility] [id number] [place] [address] Jan, Acute thoracic back pain, unspecified back pain laterality M54.6 [facility] [id number] [place] [address] Nov, Pain of sternum R07.89 [facility] [id number] [place] [address]36- 1395 15 Oct, 2015 [place] [id number] [place] [address] 23521- 9810 14 Oct, 2015 [facility] [address] [place] [address]01- 1188 Oct, Abdominal pain R10.9 ; Hypercalciuria, 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 ; History of recurrent UTIs Z87.440 and Depression F32.9 [facility] [address], [place] [address] 14 Jan, 2015 [facility] [address] [place] [address] 65198- 4624 Jan, [facility] [address] [place] [address] 67368- 1700 Sep, [facility] [id number] [place] [address] 43351- 5693 Sep, [facility] [address] [place] [address] 72710- 7506 Sep, [facility] [address] [place] [address] 13859- 0342 Aug, [facility] [place] [facility] [address] [id number] [place] [address] Aug, [facility] [place] [facility] [address] [id number] [place] [address] Jul, [facility] [place] [facility] [address] [id number] [place] [address] Jul, [facility] [place] [facility] [address] [id number] [place] [address] 269[address] Jul, [facility] [place] [facility] [address] [id number] [place] [address] 9[address] Jul, [facility] [place] [facility] [address] [id number] [place] [address] 27[address] Jul, [facility] [place] [facility] [address] [id number] [place] [address] 57[address] Jul, [facility] [place] [facility] [address] [id number] [place] [address] 240[address] Jul, [facility] [place] [facility] [address] [id number] [place] [address] Jul, [facility] [place] [facility] [address] [id number] [address] Jul, [facility] [place] [facility] [address] [id number], [place] [address] 28 Jun, 2013 [facility] [place] [facility] [address] [id number], [place] [address] 27 Sep, 2012 [facility] [place] [facility] [address] [id number] [place] [address] 16 Sep2012 [facility] [place] [facility] [address] [id number] [place] [address]- 2377 13 Sep2012 [facility] [place] [facility] [address] [id number] [place] [address] 47[address] 12 Sep2012 [facility] [place] [facility] [address] [id number], [place] [address] 21 Mar, 2012 [facility] [address] [facility] [id number], [place] [address] Mar, [facility] [address] [facility] [id number], [place] [address] 20 Mar, 2012 [facility] [address] [facility] [id number], [place] [address] 14 Mar, 2012 [facility] [address] [facility] [id number], [place] [address] 12 Mar, 2012 IMMUNIZATIONS No Known Immunizations SOCIAL HISTORY Never Assessed REASON FOR VISIT cough/fever Pt c/o cough and fever for 3 days PADMAJA Juarez PLAN OF CARE Activity Details Follow Up prn Reason: VITAL SIGNS Height 61 in 2018-01-31 Weight 181.2 lbs 2018-01-31 Temperature 97.7 degrees Fahrenheit 2018-01-31 Heart Rate 88 bpm 2018-01-31 Respiratory Rate 18 2018-01-31 BMI 34.23 kg/m2 2018-01-31 Blood pressure systolic 102 mmHg 2018-01-31 Blood pressure diastolic 60 mmHg 2018-01-31 MEDICATIONS Medication Instructions Dosage Frequency Start Date End Date Duration Status Loratadine 10 MG Orally Once a day 1 tablet 24h Jan, February, 30 day(s) Active Tessalon Perles 100 MG Orally Three times a day 1 capsule as needed 8h Jan, Jan, 5 days Active Ibuprofen 800 MG Orally Three times a day as needed for pain 1 tablet with food or milk as needed Jan, Active Prozac 20 MG Orally Once a day 1 capsule in the morning 24h Oct, 30 day(s) Not-Taking RESULTS No Results PROCEDURES No Known procedures INSTRUCTIONS MEDICATIONS ADMINISTERED No Known Medications MEDICAL (GENERAL) HISTORY Type Description Date Medical History Renal stones since age of 16 Medical History History HPV 09/2008 had colp done Surgical History cholecystectomy 2007 Surgical History cyst removed from jaw
--- OUTSIDE RECORDS SUMMARY | 2018-10-03 21:31 | XMS REPORT ---
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
--- OUTSIDE RECORDS SUMMARY | 2018-10-03 21:31 | XMS REPORT ---
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 74644195 Problem Body mass index (BMI) of 34.0-34.9 in adult Z68.34 Active 617384653 Problem 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 571672585 ALLERGIES Substance Reaction Event Type Date Status Macrobid Unknown Drug Allergy Jan, Active Morphine Unknown Drug Allergy Jan, Active ENCOUNTERS Encounter Location Date Diagnosis [facility] [address] [address] Mar, [facility] [address] [place] [address] February, Screening cholesterol level Z13.220 ; Hypercalciuria, 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 ; 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 ; Right upper quadrant pain R10.11 ; Other obesity due to excess calories E66.09 ; Body mass index (BMI) of 34.0-34.9 in adult Z68.34 and Dietary counseling Z71.3 [facility] [address] [place] [address] [place] [address] Jan, Well woman exam with routine gynecological exam Z01.419 ; Weight gain R63.5 ; History of anemia Z86.2 ; Acute vaginitis N76.0 and Other specified bacterial agents as the cause of diseases classified elsewhere B96.89 [facility] [address], [place] [address] Jan, Acute nasopharyngitis J00 [facility] [id number] [place] [address] 65558- 0162 Jan, Pharyngitis, unspecified etiology J02.9 and Upper respiratory tract infection, unspecified type J06.9 [facility] [id number] [place] [address] Jan, Acute thoracic back pain, unspecified back pain laterality M54.6 [facility] [id number] [place] [address] Nov, Pain of sternum R07.89 [facility] [id number] [place] [address] 27721- 6635 15 Oct, 2015 [place] [id number] [place] [address] 44633- 5311 14 Oct, 2015 [facility] [id number] [place] [address] 24708- 5944 Oct, Abdominal pain R10.9 ; Hypercalciuria, 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 ; History of recurrent UTIs Z87.440 and Depression F32.9 [facility] [address], [place] [address] 14 Jan, 2015 [place] [id number] [place] [address] 80044- 7937 Jan, [facility] [address], [place] [address] Sep, [facility] [id number] [place] [address] 88400- 4441 Sep, [facility] [address], [place] [address] Sep, [facility] [address] [place] [address] 07755- 8775 Aug, [facility] [place] [facility] [address] [id number] [place] [address]- [address] Aug, [facility] [place] [facility] [address] [id number] [place] [address]- 8461 Jul, [facility] [place] [facility] [address] [id number] [place] [address]- 2012 Jul, [facility] [place] [facility] [address] [id number] [place] [address]- 3[address] Jul, [facility] [place] [facility] [address] [id number] [place] [address]- 2576 Jul, [facility] [place] [facility] [address] [id number] [place] [address]- 86[address] Jul, [facility] [place] [facility] [address] [id number] [place] [address]- 8134 Jul, [facility] [place] [facility] [address] [id number] [place] [address]- 74[address] Jul, [facility] [place] [facility] [address] [id number] [place] [address]- 4[address] Jul, [facility] [place] [facility] [address] [id number] [place] [address]- 2985 Jul, [facility] [place] [facility] [address] [id number] [place] [address]- 5394 28 Jun, 2013 [facility] [place] [facility] [address] [id number], [place] [address] 27 Sep, 2012 [facility] [place] [facility] [address] [id number] [place] [address]- 7494 16 Sep, 2012 [facility] [place] [facility] [address] [id number] [place] [address]- 8887 13 Sep2012 [facility] [place] [facility] [address] [id number] [place] [address]- 8407 12 Sep, 2012 [facility] [place] [facility] [address] [id number] [place] [address] 3[address] Mar, [facility] [address] [facility] [id number], [place] [address] Mar, [facility] [address] [facility] [id number], [place] [address] Mar, [facility] [address] [facility] [id number], [place] [address] Mar, [facility] [address] [facility] [id number], [place] [address] Mar, IMMUNIZATIONS No Known Immunizations SOCIAL HISTORY Never Assessed REASON FOR VISIT back pain Pt c/o mid back pain, which is worse with movement, has had for about 2 weeks, not better with ibuprofen PADMAJA Juarez PLAN OF CARE Activity Details Follow Up prn Reason: VITAL SIGNS Height 61 in 2018-01-12 Weight 182.4 lbs 2018-01-12 Temperature 97.9 degrees Fahrenheit 2018-01-12 Heart Rate 84 bpm 2018-01-12 Respiratory Rate 18 2018-01-12 BMI 34.46 kg/m2 2018-01-12 Blood pressure systolic 102 mmHg 2018-01-12 Blood pressure diastolic 64 mmHg 2018-01-12 MEDICATIONS Medication Instructions Dosage Frequency Start Date End Date Duration Status Prozac 20 MG Orally Once a day 1 capsule in the morning 24h Oct, 30 day(s) Not-Taking Cyclobenzaprine HCl 5 mg Orally 2 times a day 1 tablet as needed 12h JanJan, 10 days Active Ibuprofen 800 MG Orally Three times a day 1 tablet with food or milk as needed 8h Jan, Active RESULTS No Results PROCEDURES No Known procedures INSTRUCTIONS MEDICATIONS ADMINISTERED No Known Medications MEDICAL (GENERAL) HISTORY Type Description Date Medical History Renal stones since age of 16 Medical History History HPV 09/2008 had colp done Surgical History cholecystectomy 2007 Surgical History cyst removed from jaw
--- OUTSIDE RECORDS SUMMARY | 2018-10-03 21:31 | XMS REPORT ---
Author WILLA Jackson [facility] eClinicalWorks Address Unknown Phone Unavailable Care Team Providers Care Director Of Solutions Architecture Name Role Phone WILLA BRUNER Unavailable Allergies No Known Allergies Problems Problem Type Condition Code Onset Dates Condition Status Problem History of recurrent UTIs Z87.440 Active Problem Depression F32.9 Active Problem Abdominal pain R10.9 Active Problem Hypercalciuria, 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 Active Medications Medication Code System Code Instructions Start Date End Date Status Dosage Prozac [facility] [address]-94 20 MG Orally Once a day Oct 21, 2015 1 capsule in the morning Results No Known Results Summary Purpose eClinicalWorks Submission
--- OUTSIDE RECORDS SUMMARY | 2018-10-03 21:31 | XMS REPORT | Continuity of Care Document ---
Author Author [facility] Organization [facility] Address Unknown Phone Unavailable Care Team Providers Care Counter Pocket Sewer Name Role Phone KALA ESPINOZA MD PP Insurance Providers Payer Name Policy Number Subscriber Name [id number] Jodi Suárez 01 Self / Same As Patient Advance Directives Directive Response Recorded Date Advance Directives N 07/19/13 12:08am Organ Donor N 07/19/13 12:08am Problems No Known Problems or Medical conditions. Allergies, Adverse Reactions, Alerts No known allergies Medications Medication Dose Units Route Sig Qty Days Amoxicillin (Polymox Capsule) 500 Mg PO BID 7 Acetaminophen/Codeine (Tylenol W/Codeine #3 Tablet) 1 Tab PO Q4H PRN Vit/Fe Fumarate/Fa ( Vitamin Tablet) 1 Each PO DAILY Immunizations Name Given Type Date of Influenza Vaccine 07/01/13 H Response Recorded Date/Time Status not known Unknown Results No Known Relevant Diagnostic Tests, Laboratory Data and/or Discharge Summary.
--- OUTSIDE RECORDS SUMMARY | 2018-10-03 21:31 | XMS REPORT ---
Author Author WILLA BRUNER [facility] eClinicalWorks Address Unknown Phone Unavailable Care Team Providers Care Small Kick Press Operator Name Role Phone WILLA BRUNER CP Unavailable Allergies, Adverse Reactions, Alerts Substance Reaction Event Type Macrobid Info Not Available Drug Allergy Morphine Info Not Available Drug Allergy Problems Problem Type Condition Code Onset Dates Condition Status Assessment Depression F32.9 Active Problem History of recurrent UTIs Z87.440 Active Problem Depression F32.9 Active Problem Abdominal pain R10.9 Active Assessment Hypercalciuria, 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 Active Assessment History of recurrent UTIs Z87.440 Active Problem Hypercalciuria, 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 Active Assessment Abdominal pain R10.9 Active Medications Medication Code System Code Instructions Start Date End Date Status Dosage Prozac [facility] [address]-14 20 MG Orally Once a day Oct 21, 2015 1 capsule in the morning Procedures Procedure Coding System Code Date DRUG SCREEN NON TLC DEVICES CPT-4 56323 Oct 21, 2015 COMPLETE CBC W/AUTO DIFF WBC CPT-4 64149 Oct 21, 2015 URINALYSIS, AUTO, W/O SCOPE CPT-4 15386 Oct 21, 2015 VENIPUNCT, ROUTINE* CPT-4 00108 Oct 21, 2015 ASSAY OF AMYLASE CPT-4 63920 Oct 21, 2015 COMPREHEN METABOLIC PANEL CPT-4 90455 Oct 21, 2015 Office Visit, Est Pt., Level 4 CPT-4 04044 Oct 21, 2015 ASSAY OF LIPASE CPT-4 33027 Oct 21, 2015 Vital Signs Date/Time: Oct 21, 2015 Temperature 96.8 F Weight 165.3 lbs Height 61 in BMI 31.23 Index Blood Pressure Diastolic 60 mmHg Blood Pressure Systolic 120 mmHg Cardiac Monitoring Heart Rate 84 bpm Results Name Result Date Reference Range Unit Abnormality Flag ROUTINE VENIPUNCTURE URINE DRUG SCREEN (IN HOUSE) ----MDMA negative 20151021 ----TCA negative 20151021 ----BENZO negative 20151021 ----OPIATE negative 20151021 ----THC negative 20151021 ----MTD negative 20151021 ----AMPH negative 20151021 ----BAR negative 20151021 ----PCP negative 20151021 ----MAMP negative 20151021 ----OXY negative 20151021 ----Lot # [id number] 20151021 ----Exp date 20151021 ----Control + 20151021 ----COCAINE negative 20151021 UA LONG DIP (IN HOUSE) ----OMAYRA negative 20151021 ----GLU negative 20151021 ----SG 1.025 20151021 ----KET negative 20151021 ----pH 6.5 20151021 ----Protein negative 20151021 ----BLO negative 20151021 ----EDIS negative 20151021 ----Color yellow 20151021 ----Odor no 20151021 ----Exp date 20151021 ----URO 0.2 20151021 ----NIT negative 20151021 ----Clarity clear 20151021 ----Lot # [id number] 20151021 Summary Purpose eClinicalWorks Submission
--- OUTSIDE RECORDS SUMMARY | 2018-10-03 21:31 | XMS REPORT ---
Author Author JORDAN Brady Organization [facility] Address [address] [place] [address] Care Team Providers Care Occupational Therapist Name Role Phone JORDAN Brady Unavailable PROBLEMS Type Condition ICD9-CM Code LIR50-QP Code Onset Dates Condition Status SNOMED Code Problem Other obesity due to excess calories E66.09 Active 411287507 Problem Dietary counseling Z71.3 Active 453123171 Problem History of anemia Z86.2 Active 421959699 Problem Hypercalciuria, 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 Active 90068930 Problem Body mass index (BMI) of 34.0-34.9 in adult Z68.34 Active 065928508 Problem 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 024998384 ALLERGIES Substance Reaction Event Type Date Status Macrobid Unknown Drug Allergy Jan, Active Morphine Unknown Drug Allergy Jan, Active ENCOUNTERS Encounter Location Date Diagnosis [facility] IN [facility] [id number] [place] [address] Mar, [facility] [id number] [place] [address] February, Screening cholesterol level Z13.220 ; Hypercalciuria, 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 ; 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 ; Right upper quadrant pain R10.11 ; Other obesity due to excess calories E66.09 ; Body mass index (BMI) of 34.0-34.9 in adult Z68.34 and Dietary counseling Z71.3 [facility] [id number] [place] [address] Jan, Well woman exam with routine gynecological exam Z01.419 ; Weight gain R63.5 ; History of anemia Z86.2 ; Acute vaginitis N76.0 and Other specified bacterial agents as the cause of diseases classified elsewhere B96.89 [facility] [address], [place] [address] Jan, Acute nasopharyngitis J00 [facility] [id number] [place] [address] Jan, Pharyngitis, unspecified etiology J02.9 and Upper respiratory tract infection, unspecified type J06.9 [facility] [id number] [place] [address] Jan, Acute thoracic back pain, unspecified back pain laterality M54.6 [facility] [id number] [place] [address] Nov, Pain of sternum R07.89 [facility] [id number] [place] [address] 555[address] 15 Oct, 2015 [facility] [id number] [place] [address] 14 Oct, 2015 [facility] [id number] [place] [address] Oct, Abdominal pain R10.9 ; Hypercalciuria, 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 ; History of recurrent UTIs Z87.440 and Depression F32.9 [facility] [address] [address] 14 Jan, 2015 [facility] [id number] [place] [address] Jan, [facility] [id number] [place] [address] Sep, [facility] [id number] [place] [address] Sep, [facility] [address] [address] Sep, [facility] [id number] [place] [address] Aug, [facility] [place] [facility] [address] [id number] [place] [address] Aug, [facility] [place] [facility] [address] [id number] [place] [address] Jul, [facility] [place] [facility] [address] [id number] [place] [address] Jul, [facility] [place] [facility] [address] [id number] [place] [address] Jul, [facility] [place] [facility] [address] [id number] [place] [address] Jul, [facility] [place] [facility] [address] [id number] [place] [address] Jul, [facility] [place] [facility] [address] [id number] [place] [address] Jul, [facility] [place] [facility] [address] [id number], [place] [address] Jul, [facility] [place] [facility] [address] [id number] [place] [address] Jul, [facility] [place] [facility] [address] [id number], [place] [address] Jul, [facility] [place] [facility] [address] [id number], [place] [address] 28 Jun, 2013 [facility] [place] [facility] [address] [id number], [place] [address] 27 Sep, 2012 [facility] [place] [facility] [address] [id number] [place] [address] 16 Sep2012 [facility] [place] [facility] [address] [id number], [place] [address] 13 Sep2012 [facility] [place] [facility] [address] [id number] [place] [address] 12 Sep2012 [facility] [place] [facility] [address] [facility] [id number], [place] [address] 21 Mar, 2012 [facility] [address] [facility] [id number], [place] [address] Mar, [facility] [address] [facility] [id number], [place] [address] 20 Mar, 2012 [facility] [address] [facility] [id number], [place] [address] 14 Mar, 2012 [facility] [address] [facility] [id number], [place] [address] 12 Mar, 2012 IMMUNIZATIONS No Known Immunizations SOCIAL HISTORY Never Assessed REASON FOR VISIT Sore throat, cough, congestion, nausea x2 days----DBennettRN PLAN OF CARE Activity Details Follow Up prn Reason: VITAL SIGNS Height 61 in 2018-01-29 Weight 181 lbs 2018-01-29 Temperature 98.6 degrees Fahrenheit 2018-01-29 Heart Rate 90 bpm 2018-01-29 Respiratory Rate 20 2018-01-29 BMI 34.20 kg/m2 2018-01-29 Blood pressure systolic 90 mmHg 2018-01-29 Blood pressure diastolic 62 mmHg 2018-01-29 MEDICATIONS Medication Instructions Dosage Frequency Start Date End Date Duration Status Prozac 20 MG Orally Once a day 1 capsule in the morning 24h Oct, 30 day(s) Not-Taking Ibuprofen 800 MG Orally Three times a day as needed for pain 1 tablet with food or milk as needed Jan, Active RESULTS No Results PROCEDURES Procedure Date Ordered Result Body Site STREP A ASSAY W/OPTIC January 29, 2018 LAB NOT BILLED BY [facility] January 29, 2018 INSTRUCTIONS MEDICATIONS ADMINISTERED No Known Medications MEDICAL (GENERAL) HISTORY Type Description Date Medical History Renal stones since age of 16 Medical History History HPV 09/2008 had colp done Surgical History cholecystectomy 2007 Surgical History cyst removed from jaw
--- OUTSIDE RECORDS SUMMARY | 2018-10-03 21:32 | XMS REPORT | Continuity of Care Document ---
Author Author [facility] Address Unknown Phone Unavailable Allergies Active Description Code Type Severity Reaction Onset Reported/Identified Relationship to Patient Clinical Status Yes MACROBID SEVERE OTHER Yes MORPHINE SEVERE OTHER Yes Macrobid Drug Allergy N/A N/A 06/20/2013 Yes morphine Drug Allergy N/A N/A 06/20/2013 Yes morphine [id number] Drug Allergy Mild N/A 11/08/2013 Yes nitrofurantoin [id number] Drug Allergy Mild N/A 11/08/2013 Medications There is no data. Problems Date Dx Coded Attending Type Code Diagnosis Diagnosed By 03/20/2012 V22.1 , NORMAL OTHER 03/20/2012 KALA ESPINOZA MD V22.1 , NORMAL OTHER 03/20/2012 MOUSTAPHA OLSEN DO V22.1 , NORMAL OTHER 03/20/2012 MOUSTAPHA OLSEN DO V22.1 , NORMAL OTHER 03/20/2012 MOUSTAPHA OLSEN DO V22.1 , NORMAL OTHER 03/20/2012 MOUSTAPHA OLSEN DO K V22.1 , NORMAL OTHER 06/20/2013 656.13 RH NEGATIVE 06/20/2013 V04.81 FLU SHOT 06/20/2013 V06.1 TDAP DX 06/20/2013 V23.7 , HIGH RISK W/ INSUFFICIENT CARE 06/20/2013 V77.1 DIABETES SCREENING 06/20/2013 V78.0 ANEMIA SCREENING 06/20/2013 KALA ESPINOZA MD 656.13 RH NEGATIVE 06/20/2013 KALA ESPINOZA MD V04.81 FLU SHOT 06/20/2013 KALA ESPINOZA MD V06.1 TDAP DX 06/20/2013 KALA ESPINOZA MD V23.7 , HIGH RISK W/ INSUFFICIENT CARE 06/20/2013 KALA ESPINOZA MD V77.1 DIABETES SCREENING 06/20/2013 KALA ESPINOZA MD V78.0 ANEMIA SCREENING 06/20/2013 OLSEN DO MOUSTAPHA K 656.13 RH NEGATIVE 06/20/2013 OLSEN DO MOUSTAPHA K V04.81 FLU SHOT 06/20/2013 OLSEN DO MOUSTAPHA K V06.1 TDAP DX 06/20/2013 OLSEN DO MOUSTAPHA K V23.7 , HIGH RISK W/ INSUFFICIENT CARE 06/20/2013 OLSEN DO MOUSTAPHA K V77.1 DIABETES SCREENING 06/20/2013 OLSEN DO MOUSTAPHA K V78.0 ANEMIA SCREENING 06/20/2013 OLSEN DO MOUSTAPHA K 656.13 RH NEGATIVE 06/20/2013 OLSEN DO MOUSTAPHA K V04.81 FLU SHOT 06/20/2013 OLSEN DO MOUSTAPHA K V06.1 TDAP DX 06/20/2013 OLSEN DO MOUSTAPHA K V23.7 , HIGH RISK W/ INSUFFICIENT CARE 06/20/2013 OLSEN DO MOUSTAPHA K V77.1 DIABETES SCREENING 06/20/2013 OLSEN DO MOUSTAPHA K V78.0 ANEMIA SCREENING 06/20/2013 OLSEN DO MOUSTAPHA K 656.13 RH NEGATIVE 06/20/2013 OLSEN DO MOUSTAPHA K V04.81 FLU SHOT 06/20/2013 OLSEN DO MOUSTAPHA K V06.1 TDAP DX 06/20/2013 OLSEN DONOYA K V23.7 , HIGH RISK W/ INSUFFICIENT CARE 06/20/2013 OLSEN DO MOUSTAPHA K V77.1 DIABETES SCREENING 06/20/2013 OLSEN DONOYA K V78.0 ANEMIA SCREENING 06/20/2013 OLSEN DO MOUSTAPHA K 656.13 RH NEGATIVE 06/20/2013 OLSEN DO MOUSTAPHA K V04.81 FLU SHOT 06/20/2013 OLSEN DO MOUSTAPHA K V06.1 TDAP DX 06/20/2013 OLSEN DO MOUSTAPHA K V23.7 , HIGH RISK W/ INSUFFICIENT CARE 06/20/2013 OLSEN DO MOUSTAPHA K V77.1 DIABETES SCREENING 06/20/2013 OLSEN DO MOUSTAPHA K V78.0 ANEMIA SCREENING 07/05/2013 KALA ESPINOZA MD 648.33 ANTEPARTUM DRUG DEPENDENCE 07/05/2013 OLSEN DO MOUSTAPHA K 648.33 ANTEPARTUM DRUG DEPENDENCE 07/05/2013 MOUSTAPHA OLSEN DO K 648.33 ANTEPARTUM DRUG DEPENDENCE 07/05/2013 MOUSTAPHA OLSEN DO K 648.33 ANTEPARTUM DRUG DEPENDENCE 07/05/2013 MOUSTAPHA OLSEN DO K 648.33 ANTEPARTUM DRUG DEPENDENCE 07/19/2013 KALA ESPINOZA MD Ot 599.0 URIN TRACT INFECTION NOS 07/19/2013 KALA ESPINOZA MD Ot 646.63 INFECTION-ANTEPARTUM 08/26/2013 KALA ESPINOZA MD Ot 648.93 OTH CURR COND-ANTEPARTUM 08/26/2013 KALA ESPINOZA MD Ot 787.91 DIARRHEA 08/26/2013 KALA ESPINOZA MD Ot V23.7 INSUFFICIENT CARE 11/08/2013 ZOHRA LOMAX Ot 599.0 URIN TRACT INFECTION NOS 11/08/2013 ZOHRA LOMAX Ot 789.06 ABDOMINAL PAIN, EPIGASTRIC 03/12/2018 GALINA RIGGS ACETYLENE CYLINDER PACKING MIXER Ot V23.7 INSUFFICIENT CARE 03/12/2018 GALINA RIGGS ACETYLENE CYLINDER PACKING MIXER Ot V28.89 OTHER SPECIFIED SCREENING 03/12/2018 KALA ESPINOZA MD Ot 648.33 DRUG DEPENDENCE-ANTEPART 03/12/2018 KALA ESPINOZA MD Ot 656.13 RH ISOIMMUNIZAT-ANTEPART 03/12/2018 KALA ESPINOZA MD Ot 649.73 CERVICAL SHORTENING, ANTEPARTUM CONDITIO 03/12/2018 KALA ESPINOZA MD Ot V23.7 INSUFFICIENT CARE 03/12/2018 KEYUR ACEVEDO MD Ot 596.54 NEUROGENIC BLADDER, NOT OTHERWISE SPECIF 03/12/2018 KEYUR ACEVEDO MD Ot 789.00 ABDOMINAL PAIN, UNSPECIFIED SITE 03/15/2018 GALINA RIGGS ACETYLENE CYLINDER PACKING MIXER Ot V23.7 INSUFFICIENT CARE 03/15/2018 GALINA RIGGS ACETYLENE CYLINDER PACKING MIXER Ot V28.89 OTHER SPECIFIED SCREENING 03/15/2018 KALA ESPINOZA MD Ot 648.33 DRUG DEPENDENCE-ANTEPART 03/15/2018 KALA ESPINOZA MD Ot 656.13 RH ISOIMMUNIZAT-ANTEPART 03/15/2018 KALA ESPINOZA MD Ot 649.73 CERVICAL SHORTENING, ANTEPARTUM CONDITIO 03/15/2018 KALA ESPINOZA MD Ot V23.7 INSUFFICIENT CARE 03/15/2018 KEYUR ACEVEDO MD Ot 596.54 NEUROGENIC BLADDER, NOT OTHERWISE SPECIF 03/15/2018 KEYUR ACEVEDO MD Ot 789.00 ABDOMINAL PAIN, UNSPECIFIED SITE 04/04/2018 DANAY WILHELM ACETYLENE CYLINDER PACKING MIXER Ot R10.11 RIGHT UPPER QUADRANT PAIN 04/04/2018 DANAY WILHELM APRN Ot Z90.49 ACQUIRED ABSENCE OF OTHER SPECIFIED PART 06/16/2018 Efrem Hernandez 522.5 PERIAPICAL ABSCESS WITHOUT SINUS 06/16/2018 Efrem Hernandez K04.7 PERIAPICAL ABSCESS WITHOUT SINUS Procedures Code Description [place] [address] ROUTINE VENIPUNCTURE 06/20/2013 J2790 RHOGHAM 300 MCG 06/20/2013 91881 URINE DRUG SCREEN (IN-HOUSE ) 06/20/2013 40472 UA LONG DIP 06/20/2013 25461 CBC 06/20/2013 90032 GLUCOSE CARLEEN 1 HOUR 06/20/2013 44627 BLOOD TYPE/Rh FACTOR 06/21/2013 1123187 ANTIBODY SCREEN (RESULT ONLY) 06/21/2013 68119 US OB - COMPLETE >14 WEEKS 06/25/2013 85602 ANTIBODY SCREEN (order) 06/25/2013 54000 OB - FOLLOW UP 07/05/2013 47363 CULTURE URINE 07/05/2013 76998 UA W/ CULTURE IF INDICATED 07/05/2013 48912 UA OB DIP 07/19/2013 35552 US OB - FOLLOW UP 08/01/2013 12870 UA OB DIP 08/01/2013 Results Test Result Range LIPID PANEL - 03/08/18 08:35 CHOLESTEROL, TOTAL 188 mg/dL <200 HDL CHOLESTEROL 54 mg/dL >50 TRIGLYCERIDES 87 mg/dL <150 LDL-CHOLESTEROL 115 mg/dL (calc) NRG CHOL/HDLC RATIO 3.5 (calc) <5.0 NON HDL CHOLESTEROL 134 mg/dL (calc) <130 Encounters ACCT No. Visit Date/Time Discharge Status Pt. Type Provider Facility Loc./Unit Complaint [id number] 08/01/2013 13:58:00 08/01/2013 23:59:59 CLS Outpatient MOUSTAPHA OLSEN DO [id number] 08/01/2013 13:58:00 08/01/2013 23:59:59 CLS Outpatient MOUSTAPHA OLSEN DO [place] [id number] 07/19/2013 10:46:00 07/19/2013 23:59:59 CLS Outpatient MOUSTAPHA OLSEN DO [place] [id number] 07/19/2013 10:46:00 07/19/2013 23:59:59 CLS Outpatient RAÚL SOMMERSMOUSTAPHA [place] [id number] 07/05/2013 13:26:00 07/05/2013 23:59:59 CLS Outpatient KALA ESPINOZA MD [id number] 06/20/2013 13:16:00 Document Registration [id number] 09/14/2018 14:20:00 09/14/2018 23:59:59 [id number] 03/08/2018 08:00:00 Document Registration [id number] 06/16/2018 14:17:00 06/16/2018 14:43:00 [id number] 03/15/2018 07:06:00 03/15/2018 23:59:59 CLS Outpatient DANAY WILHELM APRN [facility] RIGHT UPPER QUAD PAIN [id number] 01/17/2014 15:53:00 01/17/2014 23:59:59 CLS Outpatient KEYUR ACEVEDO MD [facility] NEUROGENIC BLADDER, RT FLANK PAIN [id number] 11/08/2013 20:12:00 11/08/2013 23:15:00 DIS Emergency ZOHRA LOMAX [facility] ER MULTIPLE COMPLAINTS [id number] 08/26/2013 12:17:00 08/26/2013 14:42:00 DIS Outpatient KALA ESPINOZA MD [facility] WSo VAGINAL DISCHARGE [id number] 08/06/2013 11:53:00 08/06/2013 23:59:59 CLS Outpatient KALA ESPINOZA MD [facility] RAD FOLLOW UP ON SHORT FEMUR LENGTH [id number] 07/18/2013 23:55:00 07/19/2013 01:25:00 DIS Outpatient KALA ESPINOZA MD [facility] WSo CONTRACTIONS,FLUID LEAKING [id number] 07/16/2013 12:17:00 07/16/2013 23:59:59 CLS Outpatient KALA ESPINOZA MD [facility] RAD CERVICAL LENGTH,FOLLOW UP 4 [place] [id number] 06/25/2013 14:54:00 06/25/2013 23:59:59 CLS Outpatient GALINA RIGGS APRN [facility] RAD SURVEY
[2018-10-03] MEDS ORDERED: cefTRIAXone 1,000 MG/2.86 ml vial (IM ONLY) IM STA (22:31)
[2018-10-03] MEDS ORDERED: cefTRIAXone 1 GM/10 ML for IV (ROCEPHIN) ONE (22:34)
--- NOTE | 2018-10-03 22:34 | ED EENT ---
History of Present Illness General Chief Complaint: Dental Problems/Pain Stated Complaint: DENTAL PAIN Source: patient Exam Limitations: no limitations History of Present Illness Date Seen by Provider: Oct 03, 2018 Time Seen by Provider: 22:33 Initial Comments Patient is a 28-year-old female who presents to the emergency room with complaints of left lower dental pain that started 1 week ago. She was placed on amoxicillin today by her primary care provider for the dental infection and reports that the pain and swelling has increased. There is no obvious swelling noted on exam. She has several dental caries and dental fractures due to caries. She reports she's tried [id number] medications without relief. Denies any fevers or drainage. Timing/Duration: last week Location: dental Prearrival Treatment: over the counter meds Associated Symptoms: No fever; tooth pain Allergies and Home Medications Allergies Coded Allergies: morphine (Verified Allergy, Mild, 11/08/13) nitrofurantoin (Verified Allergy, Mild, 11/08/13) Home Medications Cephalexin Monohydrate 500 Mg Capsule, 1 EACH PO TID Prescribed by: ZOHRA BECK on 11/08/132242 Phenazopyridine Hcl 200 Mg Tablet, 1 EACH PO TID PRN for SPASMS Prescribed by: ZOHRA BECK on 11/08/132242 Tramadol Hcl 50 Mg Tablet, 50 MG PO Q4H PRN for PAIN Prescribed by: ZOHRA BECK on 11/08/13 2243 Past Sddbqud-Erdvdq-Huynaj Hx Patient Social History Recent Foreign Travel: No Contact w/Someone Who Travel: No Immunizations Up To Date Date of Influenza Vaccine: Jul 09, 2013 Past Medical History UTI-Chronic Cervical Physical Exam Height, Weight, BMI Height: 5'3" Weight: 145lbs. 0.2oz. 65.842029qo; BMI Method: Progress/Results/Core Measures Results/Orders My Orders Orders - KATIA GOOD Lidocaine 2% Viscous 15 Ml (Xylocaine Vi (10/03/18 22:45) Hydrocodone/Apap 7.5/325 Tab (Lortab 7. (10/03/18 22:45) Ceftriaxone For Im Use (Rocephin For Im (10/03/18 22:31) Ceftriaxone For Iv Use (Rocephin For I (10/03/18 22:34) Lidocaine 1% Inj 20 Ml (Xylocaine 1% Inj (10/03/18 22:35) Ketorolac Injection (Toradol Injection) (10/03/18 23:05) Departure Impression Primary Impression: Dental caries Additional Impression: Dental infection Disposition: HOME, SELF-CARE Condition: Stable/Unchanged Departure-Patient Inst. Decision time for Depature: 23:11 Referrals: [facility] (PCP) Primary Care Physician DANAY WILHELM APRN (Family) Primary Care Physician Patient Instructions: Tooth Abscess (DC) Add. Discharge Instructions: Continue your amoxicillin as previously prescribed. Use the lidocaine soaked gauze pads as needed for additional pain relief. Be sure not to fall sleep with them in a your mouth or bite your tongue after tongue should become numb. Follow -up with your dentist within 1 week for recheck. Call first thing tomorrow morning for an appointment time. Return back to the emergency room for any worsening symptoms or concerns as needed. All discharge instructions reviewed with patient and/or family. Voiced understanding. KATIA GOOD Oct 03, 2018 22:34
[2018-10-03] MEDS ORDERED: LIDOCAINE 1% INJ 20 ML 20 ML VIAL ONE (22:35)
[2018-10-03] MEDS ORDERED: LIDOCAINE 2% VISCOUS 15 ML UDC PO ONE (22:45)
[2018-10-03] MEDS ORDERED: HYDROcodone/APAP 7.5 MG/325 MG (LORTAB, LORCET PLUS) TABLET PO ONE (22:45)
[2018-10-03] MEDS ORDERED: KETOROLAC 60 MG/2 ML VIAL ONE (23:05)
[2018-10-03 23:14] VITALS: BP 116/76
== END 2018-10-03 23:14 | disposition home or self-care (01) ==
LOC: ER 21:25 → EDUNIT# 21:25 → ER 23:14
DX: K04.7 Periapical abscess without sinus (principal); K02.9 Dental caries, unspecified; Z87.440 Personal history of urinary (tract) infections; Z88.5 Allergy status to narcotic agent; Z88.8 Allergy status to other drugs, medicaments and biological substances
CPT/HCPCS: 96372; 99283